=== PATIENT | female | born 1965 | race Caucasian/White ===

== ENCOUNTER → 2016-12-21 13:55 | Outpatient (CLI) | payer MEDICARE | END | disposition home or self-care (01) | LOC: D.MRI 13:55 | DX: M51.36 Other intervertebral disc degeneration, lumbar region (principal) ==

== ENCOUNTER 2018-03-29 12:48 | Emergency (ER) | payer MEDICARE ==
[~2018-03-29] VITALS: Ht 172.7 cm; Wt 106.4 kg
[2018-03-29 13:03] VITALS: Ht 172.7 cm; Wt 106.4 kg
[2018-03-29] MEDS ORDERED: NORVASC10 MG (13:04)
[2018-03-29] MEDS ORDERED: LOPRESSOR25 MG (13:04)
[2018-03-29] MEDS ORDERED: PRINIVIL20 MG (13:04)
[2018-03-29] MEDS ORDERED: PROZAC20 MG PO (13:05)
[2018-03-29] MEDS ORDERED: BUPROPION HCL100 M1 (13:05)
[2018-03-29 14:46] LABS: BASOPHILS 1.1 % (0-2); EOSINOPHILS 1.3 % (0-7); HEMATOCRIT 47.7 % (42.0-54.0); HEMOGLOBIN 15.9 g/dL (13.5-17.5); LYMPHOCYTES 20.9 % (15-50); MCHC 33.3 g/dL (31.0-37.0); MEAN PLATELET VOLUME 11.8 fL (7.4-10.4); MONOCYTES 5.7 % (2-11); PLATELET COUNT 194 10x3/uL (130-400); RDW 13.5 % (11.5-14.5); WBC 5.2 10x3/uL (4.8-10.8)
[2018-03-29 15:04] LABS: ANION GAP 11.3 mmol/L (8-16); BILIRUBIN - TOTAL 0.52 mg/dL (0.2-1.3); CALCIUM 9.2 mg/dL (8.5-10.1); CREATININE - SERUM 1.2 mg/dL (0.6-1.3); POTASSIUM - SERUM 4.3 mmol/L (3.5-5.1); PROTEIN - SERUM 7.4 g/dL (6.4-8.2)
[2018-03-29 15:07] LABS: APPEARANCE CLEAR (CLEAR); BILIRUBIN NEGATIVE (NEGATIVE); COLOR YELLOW (YELLOW); GLUCOSE NEGATIVE (NEGATIVE); KETONE NEGATIVE (NEGATIVE); NITRITE NEGATIVE (NEGATIVE); PROTEIN NEGATIVE (NEGATIVE); SPECIFIC GRAVITY 1.025 (1.005-1.020); UROBILINOGEN NORMAL (NORMAL)
[2018-03-29 15:16] LABS: BACTERIA FEW /hpf (NONE SEEN); RED CELLS - URINE 0-5 /hpf (0-5); WHITE CELLS - URINE 0-5 /hpf (0-5)
[2018-03-29] MEDS ORDERED: NORCO 7.5/325 T1 TA1 PO (15:44)
[2018-03-29 16:41] VITALS: BP 145/93
== END 2018-03-29 16:42 | disposition home or self-care (01) ==
LOC: EDSEX 12:48 → D.ER 12:48
PROVIDERS: Emergency Medicine
DX: R10.9 Unspecified abdominal pain (principal); I10 Essential (primary) hypertension; Z90.13 Acquired absence of bilateral breasts and nipples